=== PATIENT | female | born 1985 | race Caucasian/White ===

== ENCOUNTER 2019-11-03 08:01 | Emergency (ER) | payer OTHER ==
[~2019-11-03] VITALS: Ht 170.2 cm; Wt 90.7 kg
[~2019-11-03 08:01] MED LIST: AMOX500 PO; CEPH500 PO; DEXGUASY PO; IBUP800 PO; MULVITMINE PO; NAPR550 PO; PHENA200 PO; PROM25 PO; Prednisone20 MG PO; RXPHEN200 PO; RXSULTRIDS PO; SERT50 PO; SULTRIDS PO
[2019-11-03] MEDS ORDERED: Zofran4 MG PO (09:18)
[2019-11-03] MEDS ORDERED: IBUP600 PO (09:18)
== END 2019-11-03 09:30 | disposition home or self-care (01) ==
LOC: ER 08:01
DX: S06.0X9A Concussion with loss of consciousness of unspecified duration, initial encounter (principal); T22.10XA Burn of first degree of shoulder and upper limb, except wrist and hand, unspecified site, initial encounter; S80.212A Abrasion, left knee, initial encounter; T14.8XXA Other injury of unspecified body region, initial encounter; F32.9 Major depressive disorder, single episode, unspecified; Y04.2XXA Assault by strike against or bumped into by another person, initial encounter
CPT/HCPCS: 70450; 71045; 73562-LT; 99284-25; A9270

== ENCOUNTER 2020-10-22 00:22 | Emergency (ER) | payer OTHER ==
[~2020-10-22] VITALS: Ht 170.2 cm; Wt 74.8 kg
[~2020-10-22 00:22] MED LIST changes: +IBUP600 PO; +Zofran4 MG PO
== END 2020-10-22 01:18 | disposition home or self-care (01) ==
LOC: ER 00:22
DX: L25.5 Unspecified contact dermatitis due to plants, except food (principal)
CPT/HCPCS: 96372; 99282-25; J3301

== ENCOUNTER 2020-12-21 21:48 | Emergency (ER) | payer OTHER ==
[~2020-12-21] VITALS: Ht 170.2 cm; Wt 77.1 kg
[2020-12-21] MEDS ORDERED: CEPH500 PO (22:40)
== END 2020-12-21 23:00 | disposition home or self-care (01) ==
LOC: ER 21:48
DX: L03.115 Cellulitis of right lower limb (principal); F17.210 Nicotine dependence, cigarettes, uncomplicated
CPT/HCPCS: 99282; A9270

== ENCOUNTER 2021-03-31 14:17 | Emergency (ER) | payer OTHER ==
[~2021-03-31] VITALS: Ht 167.6 cm; Wt 83.9 kg
[2021-03-31] MEDS ORDERED: Bactrim Ds Tab1 EACH PO (14:34)
[2021-03-31] MEDS ORDERED: CEPH500 PO (14:34)
== END 2021-03-31 14:45 | disposition home or self-care (01) ==
LOC: ER 14:17
DX: L03.115 Cellulitis of right lower limb (principal); Z87.891 Personal history of nicotine dependence
CPT/HCPCS: 99283; A9270

== ENCOUNTER 2022-06-29 10:44 | Emergency (ER) | payer OTHER ==
[~2022-06-29] VITALS: Ht 170.2 cm; Wt 81.7 kg
[~2022-06-29 10:44] MED LIST changes: +Bactrim Ds Tab1 EACH PO
[2022-06-29] MEDS ORDERED: CEPH500 PO (11:35)
[2022-06-29] MEDS ORDERED: SULTRIDS PO (11:35)
== END 2022-06-29 11:39 | disposition home or self-care (01) ==
LOC: ER 10:44
DX: L03.115 Cellulitis of right lower limb (principal); Z87.891 Personal history of nicotine dependence
CPT/HCPCS: 99283; A9270

== ENCOUNTER 2023-03-11 13:53 | Emergency (ER) | payer OTHER ==
[~2023-03-11] VITALS: Ht 170.2 cm; Wt 81.7 kg
[2023-03-11 14:10] VITALS: BP 154/94
[2023-03-11] MEDS ORDERED: TRIDERM28.4 GM TOP (14:14)
== END 2023-03-11 14:39 | disposition home or self-care (01) ==
LOC: ER 13:53
DX: L23.7 Allergic contact dermatitis due to plants, except food (principal); Z79.899 Other long term (current) drug therapy; Z87.891 Personal history of nicotine dependence
CPT/HCPCS: J3301

== ENCOUNTER 2025-11-03 10:56 | Emergency (ER) | payer OTHER ==
[~2025-11-03] VITALS: Ht 170.2 cm; Wt 90.7 kg
[~2025-11-03 10:56] MED LIST changes: +TRIDERM28.4 GM TOP
[2025-11-03 11:15] VITALS: BP 150/104
[2025-11-03] MEDS ORDERED: AMOCLA875 PO (11:24)
== END 2025-11-03 11:29 | disposition home or self-care (01) ==
LOC: ER 10:56
DX: K05.30 Chronic periodontitis, unspecified (principal); F17.290 Nicotine dependence, other tobacco product, uncomplicated; Z79.899 Other long term (current) drug therapy
CPT/HCPCS: 99282; A9270